=== PATIENT | male | born 1985 | race Caucasian/White ===

== ENCOUNTER → 2017-09-29 | Outpatient (CLI) | payer OTHER ==
[~2017-09-29] MED LIST: BUPRENORPHINE HC8 MG SL; IBUP600 PO
== END ==
LOC: OLS 10:52
PROVIDERS: Nurse Practitioner Family
DX: R73.01 Impaired fasting glucose (principal)
CPT/HCPCS: 36415; 82947; 82951; 82952; 83036; 83525